=== PATIENT | male | born 1960 | race Caucasian/White ===

== ENCOUNTER 2017-02-05 10:51 | Emergency (ER) | payer SELFPAY ==
[~2017-02-05] VITALS: Ht 167.6 cm; Wt 90.7 kg
[~2017-02-05 10:51] MED LIST: BAYER ASPIRIN325 MG PO; BISOPROLOL 5MG T5 MG PO; CIPRO 500MG TA500 MG PO; CORTISPORIN OTI10 M1; FLAGYL500 MG PO; GABAPENTIN 400400 M1 PO; HYDROCODONE-APA1 TA2 PO; KEFLEX 500MG.500 MG PO; LIPITOR10 MG PO; LIPITOR40 MG PO; LISINOPRIL 10MG10 MG PO; LISINOPRIL 5MG T5 MG PO; LISINOPRIL2.5 M1 PO; MELOXICAM15 MG PO; NEURONTIN 300M300 MG PO; NITROGLYCERIN0.4 MG SL; PHENERGAN 25MG.25 M1 PO; PLAVIX 75MG TAB75 MG PO; PLAVIX75 MG PO; PROTONIX 40MG T40 MG PO; PROZAC10 MG PO; SINUS HEADACHE PO; TAMSULOSIN HCL0.4 MG PO; TOPROL XL 100M100 MG PO; TRAMADOL 50MG T50 M1 PO; ZANTAC 7575 MG PO
--- NOTE | 2017-02-05 11:03 | Emergency Room Report ---
History of Present Illness Time Seen by [facility] Presenting Problem in Triage Pt arrived:Walked Presenting Problem:PT PRESENTS WITH BURNING AND DISCOMFORT WHEN VOIDING. DENIES NEW SEXUAL PARTNERS. DENIES ISSUES WITH BM. STATES HISTORY OF PROSTATE ENLARGEMENT SEES DR SWARTZ. HAS TRIED FLOMAX BEFORE WITHOUT SUCCESS Onset of symptoms date/time:/ or onset unknown for:MEDICAL HX UNKNOWN Treatment Prior to Arrival: [employer] Provided by: Sepsis Risk Assessment: Temp: 97.3 B/P: 151/78 MAP: 102 Pulse: 112 Resp: 18 Recent fever? N Clinical Suspician of Infection? N Mental Status: 1 - Regular (Normal Baseline) Sepsis Risk:Low Sepsis Risk Have you (or family members/close friends) recently traveled outside the [place]? N If Yes, where/when: Have you had exposure to infectious disease within the past month? TB? Other? Specify: Comment The patient complains of urinary frequency, dysuria, and gross hematuria beginning this morning. He says he is peeing "straight blood". Denies prior history of this or any prior history of UTI or kidney stone. He is on Plavix, no other blood thinners. No trauma. No fever. Chronic back pain, no recent change. No abdominal pain. ALLERGIES Coded Allergies: codeine (Intermediate, ITCHING 02/05/17) Home Medications Reported Medications Pantoprazole Sodium (Protonix 40MG TAB) 40 MG PO BID CLOPIDOGREL BISULFATE (PLAVIX) 75 MG PO DAILY BISOPROLOL FUMARATE (Bisoprolol 5MG) 10 MG PO DAILY LISINOPRIL (Lisinopril) 10 MG PO DAILY NITROGLYCERIN (Nitrostat) 0.4 MG SL [id number] PRN HEART Atorvastatin Calcium (Atorvastatin) 40 MG PO DAILY Gabapentin (Gabapentin 400MG Capsule) 400 MG PO TID #90 TAMSULOSIN HCL (Tamsulosin HCl) 0.4 MG PO DAILY #30 History Medical History General CAD? No Angina: Yes AK: Yes Hypertension? Yes Hyperlipidemia? Yes CHF? No DVT? No PE? No COPD? No Asthma? No Anemia? No GERD? No Gastric ulcers? No GI Bleed? No Hernia? No Thyroid Problems? No Hypothyroidism? No CVA? No Seizures? No Diabetes? No Renal Insuffiency? No End Stage Renal Disease? No UTI? No Stones? No BPH? No GB Disease: No Nephritic Syndrome? No Asplenia? No Hepatitis? No Sickle Cell Disease? No Arthritis? No Migraines? No Cataracts? No Glaucoma? No MRSA? No HIV? No TB? No Anxiety? No Depression? No Cancer? No Immunization Hx Ped.Immunizations UTD Yes DT/Tetanus 1-4 Years Ago Flu [id number] Pneumonia Never Had Surgical Hx Previous Surgery?Y cardiac stent x2 08/24 cardiac stent 2013 cabg 2001 Family History Family Hx Diabetes Yes CAD Yes Hypertension Yes Hyperlipidemia Yes Cancer No TB No Social History Smoking Hx Smoker: Current Every Day Smoker Tobacco: Yes Type Cigarettes Packs/day < 1 Pack Alcohol Alcohol: No Review of Systems All Other Systems Reviewed and Negative Constitutional denies fever Gastrointestinal denies abdominal pain Genitourinary dysuria, frequency, hematuria. Musculoskeletal back pain (chronic) Physical Exam Vital Signs Vital Signs Date Time Temp Pulse Resp B/P Pulse O2 O2 Flow FiO2 Ox Delivery Rate 02/05 1338 108 18 149/80 98 02/05 1059 97.3 112 18 151/78 96 General Appearance normal appearance, WD/WN Eye Exam - bilateral eye normal exam, bilateral eye PERRL, bilateral eye EOMI Ear, Nose, Throat hearing grossly normal, normal ENT inspection Neck normal inspection, non-tender, supple, full range of motion Respiratory Status Yes: trachea midline, chest symmetrical, non tender chest. No: respiratory distress. Lung Sounds bilateral: normal breath sounds, lungs clear. Cardiovascular normal exam, regular rate/rhythm, no peripheral edema, no gallop, no JVD, no murmur, no rub, normal peripheral pulses Peripheral Pulses Pulses normal Yes Gastrointestinal normal bowel sounds, soft, no organomegaly, no guarding, no rebound, tenderness (suprapubic) Back normal inspection, no CVA tenderness, no vertebral tenderness Extremities non-tender, normal range of motion, normal inspection Neurologic alert, full decator operator II-XII nml as tested, normal exam, oriented x 3 Mental status normal mood/affect Skin intact, normal color, warm/dry Medical Decision Making LABS/Meds/Orders Pt receiving controlled substance in ED? No Results/Orders Laboratory Tests 02/05/17 1155: Sodium 136, Potassium 4.1, Chloride 100, Carbon Dioxide 30, BUN 14, Creatinine 1.0, Estimated Creat Clear 105, Estimated GFR (MDRD) 77, Glucose 148 H, Calcium 8.9, WBC 13.8 H, RBC 5.34, Hgb 16.2, Hct 47.7, MCV 89.5, RDW 13.4, Plt Count 237, MPV 7.0 L, Gran % 79.4, Gran # 10.9 H, Lymphocytes % 12.7, Monocytes % 4.5, Eosinophils % 3.0, Basophils % 0.5, Lymphocytes # 1.8, Monocytes # 0.6, Eosinophils # 0.4, Basophils # 0.1, PUBS MCHC 33.8, MCH 30.3 02/05/17 1110: Urine Color RED, Urine Appearance TURBID, Urine pH 5.5, Ur Specific [place] 1.025, Urine Protein 2+ H, Urine Ketones TRACE H, Urine Blood 3+ H, Urine Nitrate POSITIVE H, Urine Bilirubin NEGATIVE, Urine Urobilinogen 1.0, Ur Leukocyte Esterase 3+ H, Urine RBC TNTC, Urine WBC TNTC, Urine Bacteria 4+, Urine Glucose TRACE H Current Medication Orders Sig/Rianna Start time Last Medication Dose Route Stop Time Status Admin Ceftriaxone Sodium 0 .STK-MED ONE 02/05 1332 DC IV Sodium Chloride 50 ML .STK-MED ONE 02/05 1331 DC IV Ceftriaxone Sodium 1 GM ONCE ONE 02/05 1215 DC 02/05 Sodium Chloride 50 ML IV 02/05 1244 1336 Sodium Chloride 10 ML PRN PRN 02/05 1130 DCD IV 02/06 1130 Orders Procedure Date/time Status DIET-NOTHING BY MOUTH 02/[address] ABD/PELVIS REQ 02/05 1131 Complete IV SALINE LOCK 02/05 1131 Active CBC WITH AUTO DIFF 02/05 1131 Complete BASIC METABOLIC PROFILE 02/05 1131 Complete CULTURE, URINE 02/05 1110 Active URINALYSIS/COMPLETE 02/05 1102 Complete XRAY/CT/US XRAY/CT/US CT abdomen, pelvis Comment CT scan interpreted by radiologist: Diverticulosis. No stones. No acute process. Departure Departure Disposition DC Home or Self Care(routine) Clinical Impression Primary Impression: UTI (urinary tract infection) Qualifiers: Urinary tract infection type: acute cystitis Hematuria presence: with hematuria Qualified Code: N30.01 - Acute cystitis with hematuria Condition STABLE Patient Instructions DI for Urinary Tract Infection (UTI) Additional Instructions Additional instructions for URINARY TRACT INFECTION: See your physician as soon as possible for further evaluation. Return immediately if you have an uncontrollable fever greater than 102 degrees, severe back or abdominal pain, inability to urinate, or repetetive vomiting. Prescriptions Current Visit Scripts Ciprofloxacin HCl (Cipro 500MG TAB) 500 MG PO BID #20 TAB ED Critical Care Critical Care No at 1910
[2017-02-05 11:18] LABS: URINE BLOOD 3+ (NEG)
[2017-02-05 11:20] LABS: URINE BILIRUBIN - DIPSTICK NEGATIVE (NEG)
[2017-02-05 12:05] LABS: HEMOGLOBIN 16.2 g/dL (14.1-18.0); LYMPH # 1.8 K/mm3 (0.7-4.5); LYMPH % 12.7 % (10-50)
--- NOTE | 2017-02-05 13:00 | RADIOLOGY REPORT PS360 ---
CT ABD PELVIS W/O CONTRAST CLINICAL INDICATION: Hematuria with lower abdominal pain HEMATURIA; R/O STONE ORDERING PHYSICIAN: Harvey Trivedi MD PATIENT AGE: 56 years COMPARISON: 09/24/2015 TECHNIQUE: Axial images obtained with sagittal and coronal reformats. PROCEDURE: Oral Contrast: None IV Contrast: None . FINDINGS: Scattered calcified granulomas are present in the lung bases. The liver, gallbladder, spleen, pancreas, and right adrenal gland are unremarkable. Left adrenal gland is slightly enlarged but unchanged maintaining an adreniform shape. No renal or ureteral calculi are evident. No hydronephrosis. Unremarkable appearing urinary bladder Unremarkable appendix. There is diverticulosis of the descending and sigmoid colon but no convincing evidence of diverticulitis on this unenhanced scan. No intestinal obstruction or free air. No acute bony anomalies. IMPRESSION: 1. No acute intra-abdominal or pelvic findings. 2. Diverticulosis. 3. No obstructing renal or ureteral calculi
[2017-02-05] MEDS ORDERED: CIPRO 500MG TA500 MG PO (13:30)
[2017-02-05 13:38] VITALS: BP 149/80
== END 2017-02-05 13:38 | disposition home or self-care (01) ==
LOC: ER 10:51
PROVIDERS: Emergency Medicine
DX: N30.01 Acute cystitis with hematuria (principal); I10 Essential (primary) hypertension; Z79.899 Other long term (current) drug therapy; Z72.0 Tobacco use

== ENCOUNTER → 2017-05-17 | Outpatient (CLI) | payer SELFPAY ==
--- NOTE | 2017-05-18 15:01 | RADIOLOGY REPORT PS360 ---
[id number] VIEWS HISTORY: LEFT SHOULDER PAIN ORDERING PHYSICIAN: JUSTA BLANK MD PATIENT AGE: 56 years COMPARISON: None FINDINGS: No fracture or dislocation. No lytic or blastic change. There is normal mineralization. There are mild hypertrophic changes at the acromioclavicular joint with spurring noted superiorly. There are minimal osteoarthritic changes of the glenohumeral joint. There is mild subacromial stenosis. IMPRESSION: Mild osteoarthritic changes of the AC joint and glenohumeral joint with mild subacromial stenosis
== END ==
LOC: RAD 09:41
DX: M25.512 Pain in left shoulder (principal)

== ENCOUNTER → 2017-05-22 | Outpatient (CLI) | payer MEDICAID, MEDICARE ==
--- NOTE | 2017-05-23 10:16 | RADIOLOGY REPORT PS360 ---
MRI-UP EXT ANY JNT W/O-LT HISTORY: Left shoulder pain with limited range of motion LEFT SHOULDER PAIN ORDERING PHYSICIAN: JULIANN CARDENAS PATIENT AGE: 56 years COMPARISON: Radiograph of 05/17/2017 TECHNIQUE: Standard multiplanar multiecho sequences are performed without contrast. FINDINGS: There are hypertrophic changes of the acromioclavicular joint as well as hypertrophy along the inferior surface of the acromion resulting in subacromial stenosis. There is slight increased T2 signal involving the supraspinatus tendon. No obvious tendon tear. The infraspinatus tendon appears intact. The subscapularis and teres minor tendons also appear intact. No obvious labral tear. Bicipital tendon is in place. No fracture or bone bruise. There is slight increased T2 signal involving the lateral aspect of the greater tuberosity consistent with some mild inflammatory change IMPRESSION: 1. Subacromial stenosis secondary to acromioclavicular hypertrophy and hypertrophic change along the inferior surface of the acromion. 2. Tendinopathy/tendinosis of the supraspinatus tendon without evidence of tendon tear.
== END ==
LOC: RAD 13:45
DX: M25.512 Pain in left shoulder (principal)